=== PATIENT | female | born 1970 | race Caucasian/White ===

== ENCOUNTER 2016-12-20 20:21 | Emergency (ER) | payer OTHER ==
[2016-12-20 20:54] VITALS: BP 119/82
--- NOTE | 2016-12-20 21:21 | UC ---
Dental HPI - HPI Summary HPI Summary: The patient comes in today for: 1. Loose tooth Onset: 3 weeks ago. Palliative/provocative: Nothing makes her loose tooth better or worse. Quality: "irritating" Region: Lower incisors. Severity: 09/09 Time: Constant. Associated symptoms: Fevers: None Last dental visit: ABout a year ago. Previous dental problems: She had a root canal for the upper left tooth. She states that she does not have dental insurance. * - History of Current Complaint Chief Complaint: UCDentalProblem Stated Complaint: GUM SWELLING,LOOSE TOOTH Time Seen by Provider: 12/20/16 21:15 Hx Obtained From: Patient Hx Last Menstrual Period: 12/04/16 ?: No - Allergies/Home Medications Allergies/Adverse Reactions: Allergies Allergy/AdvReac Type Severity Reaction Status Date / Time No Known Allergies Allergy Verified 12/20/16 20:54 PMH/Surg Hx/FS Hx/Imm Hx Previously Healthy: Yes Endocrine History Of: Denies: Diabetes, Thyroid Disease, Hyperthyroidism, Hypothyroidism, Dyslipidemia Cardiovascular History Of: Denies: Cardiac Disorders, Hypertension, Pacemaker/ICD, Myocardial Infarction , Congestive Heart Failure, Atrial Fibrillation, Deep Vein Thrombosis, Bleeding Disorders Respiratory History Of: Denies: COPD, Asthma, Bronchitis, Pneumonia, Pulmonary Embolism GI/ History Of: Denies: Gastroesophageal Reflux, Ulcer, Gastrointestinal Bleed, Gall Bladder Disease, Kidney Stones, Diverticulitis, Renal Disease, Urosepsis Neurological History Of: Denies: TIA, CVA, Dementia, Seizures, Migraine Psychological History Of: Denies: Anxiety, Depression, Bipolar Disorder, Schizophrenia, Post Traumatic Stress Disorder Cancer History Of: Denies: Lung Cancer, Colorectal Cancer, Breast Cancer, Prostate Cancer, Cervical Cancer Other History Of: Negative For: HIV, Hepatitis B, Hepatitis C, Anticoagulant Therapy - Surgical History Surgical History: None - Family History Known Family History: Negative: Cardiac Disease, Hypertension - Social History Occupation: Student Alcohol Use: Rare Substance Use Type: None Smoking Status (MU): Current Some Day Smoker Type: Cigarettes Review of Systems Constitutional: Negative Skin: Negative Eyes: Negative ENT: Dental Pain Respiratory: Negative Cardiovascular: Negative Gastrointestinal: Negative Genitourinary: Negative Musculoskeletal: Negative All Other Systems Reviewed And Are Negative: Yes Physical Exam Triage Information Reviewed: Yes Appearance: Well-Appearing, No Pain Distress, Well-Nourished Vital Signs: Initial Vital Signs Temp 98.3 F 12/20/16 20:49 Pulse 50 12/20/16 20:49 Resp 18 12/20/16 20:49 BP 119/82 12/20/16 20:49 Pulse Ox 100 12/20/16 20:49 Vital Signs Reviewed: Yes Eyes: Positive: Conjunctiva Clear. Negative: Discharge ENT: Positive: Hearing grossly normal. Negative: Pharyngeal erythema, Nasal congestion, Nasal drainage, TM bulging, TM dull, TM red, Tonsillar swelling, Tonsillar exudate Dental: Positive: Gross Decay/Caries @, Other: - #24 tooth is slightly loose. There is gum recession of this tooth. The posterior gum has recessed and the gum is swollen and red.. Negative: Dental Fracture @ Neck: Positive: Supple, Nontender, No Lymphadenopathy Respiratory: Positive: Lungs clear, No respiratory distress, No accessory muscle use. Negative: Crackles, Rhonchi Cardiovascular: Positive: RRR, No Murmur Abdomen Description: Positive: Nontender, No Organomegaly, Soft. Negative: Distended, Guarding Musculoskeletal: Positive: Strength Intact, ROM Intact, No Edema Neurological: Positive: Alert, Muscle Tone Normal Psychological: Positive: Age Appropriate Behavior, Consolable Skin: Negative: rashes, breakdown Dental Complaint Course/Dx - Differential Dx/Diagnosis Differential Diagnosis/Dx: Dental Caries Provider Diagnoses: pulpitis. Gingivitis Discharge - Discharge Plan Condition: Stable Disposition: HOME Prescriptions: Naproxen [Naproxen 500 MG TABS] 500 mg PO BID PRN #30 tab PRN Reason: Pain Penicillin VK TAB* [Penicillin VK 250 mg Tab*] 500 mg PO QID #80 tab Patient Education Materials: Dental Abscess (ED), Toothache (ED) Additional Instructions: Please see a dentist as soon as you can for evaluation and treatment. If you get worse between now and then, please be seen sooner in the ER or us.
[2016-12-20] MEDS ORDERED: Penicillin VK LIQ* 250 MG/5 ML BTL PO ONE (21:32)
[2016-12-20] MEDS ORDERED: Naproxen TAB* 250 MG PO ONE (21:32)
== END 2016-12-20 22:10 | disposition home or self-care (01) ==
LOC: UCEAST 20:21
DX: K04.01 Reversible pulpitis (principal); K05.10 Chronic gingivitis, plaque induced; F17.210 Nicotine dependence, cigarettes, uncomplicated
CPT/HCPCS: 99201; A9270-GY; G0463